=== PATIENT | male | born 1985 | race Caucasian/White ===

== ENCOUNTER 2017-01-19 19:15 | Emergency (ER) | payer SELFPAY ==
[2017-01-19 19:45] LABS: CHLORIDE,CL 103 mEq/L (98-106); SODIUM,NA 138 mEq/L (136-145)
--- NOTE | 2017-01-19 20:21 | EDM.PDOC ---
ED HPI GENERAL MEDICAL PROBLEM - General Chief Complaint: General Stated Complaint: palpitations Time Seen by Provider: 01/19/17 19:45 Source of Information: Reports: Patient History Limitations: Reports: No Limitations - History of Present Illness INITIAL COMMENTS - FREE TEXT/NARRATIVE: Gilbert is a 31 yo male who presents to the ER with complaints of palpitations that started around 1830 this evening. States he was sitting in his chair and started to feel anxious and as if his heart was racing. He admits he hasn't felt symptoms like this in the past. Doesn't feel as if he has any significant anxiety. States he did drink a lot of Mt. Dew and had any Monster energy drink around 1700hrs. He denies any other stimulants. States he has otherwise been feeling well. He quit smoking over a year ago and does state he does use a vapor on occasion. Denies any chest pain or SOB. Alex as if his heart was going to jump out of his chest. Upon arrival to ER he admits it gradually subsided. States he does feel a little anxious still but doesn't feel any palpitations. - Related Data Allergies Allergy/AdvReac Type Severity Reaction Status Date / Time No Known Allergies Allergy Verified 01/19/17 19:28 Home Meds: Home Meds . [No Known Home Meds] 01/19/17 [History] Past Medical History - Past Health History Medical/Surgical History: Denies Medical/Surgical History Social & Family History - Family History Family Medical History: Noncontributory - Tobacco Use Smoking Status *Q: Former Smoker Used Tobacco, but Quit: Yes Month Tobacco Last Used: 2 YEARS AGO - Caffeine Use Caffeine Use: Reports: Energy Drinks, Soda - Recreational Drug Use Recreational Drug Use: No ED ROS GENERAL - Review of Systems Review Of Systems: See Below Constitutional: Denies: Fever, Chills, Decreased Appetite HEENT: Reports: Vision Change. Denies: Eye Discharge, Eye Pain Respiratory: Denies: Shortness of Breath, Wheezing, Cough Cardiovascular: Reports: Lightheadedness, Palpitations. Denies: Chest Pain, Blood Pressure Problem, Edema GI/Abdominal: Reports: No Symptoms : Reports: No Symptoms Musculoskeletal: Reports: No Symptoms Neurological: Reports: No Symptoms Psychiatric: Reports: No Symptoms ED EXAM, GENERAL - Physical Exam Exam: See Below Exam Limited By: No Limitations General Appearance: Alert, No Apparent Distress, Other (sitting comfortably in examination room) Eye Exam: Bilateral Eye: EOMI, Normal Fundi, Normal Inspection, PERRL Ears: Normal External Exam, Normal Canal, Hearing Grossly Normal, Normal TMs Nose: Normal Inspection, No Blood Throat/Mouth: Normal Inspection, Normal Lips, Normal Teeth, Normal Gums, Normal Oropharynx, Normal Voice, No Airway Compromise Head: Atraumatic, Normocephalic Neck: Normal Inspection, Supple Respiratory/Chest: No Respiratory Distress, Lungs Clear, Normal Breath Sounds, No Accessory Muscle Use Cardiovascular: Normal Peripheral Pulses, Regular Rate, Rhythm, No Edema, No Murmur GI/Abdominal: Normal Bowel Sounds, Soft, Non-Tender, No Organomegaly Extremities: Normal Inspection, Normal Range of Motion, Normal Capillary Refill Neurological: Alert, Oriented, Normal Cognition, No Motor/Sensory Deficits Psychiatric: Normal Affect, Normal Mood Skin Exam: Warm, Dry, Intact, Normal Color, No Rash EKG INTERPRETATION EKG Date: 01/19/17 Rhythm: NSR Rate (Beats/Min): 81 Course - Vital Signs Last Recorded V/S: Last Vital Signs Temp 98.1 F 01/19/17 19:28 Pulse 88 01/19/17 20:01 Resp 18 01/19/17 19:28 BP 147/83 H 01/19/17 20:01 Pulse Ox 98 01/19/17 19:28 - Orders/Labs/Meds Orders: Active Orders 24 hr Category Date Time Status Chest 2V [CR] Stat Exams 01/19/17 19:16 Taken Labs: Laboratory Tests 01/19/17 01/19/17 01/19/17 Range/Units 19:16 19:16 19:16 WBC 8.1 (5.0-10.0) 10^3/uL RBC 4.95 (4.50-6.00) 10^6/uL Hgb 15.4 (14.0-18.0) g/dL Hct 42.7 (40.0-54.0) % MCV 86.3 (82.0-94.0) fL MCH 31.1 (27.0-32.0) pg MCHC 36.1 (33.0-38.0) g/dL RDW Coeff of [place] 13.0 (11.0-15.0) % Plt Count 345 (150-400) 10^3/uL Neut % (Auto) 45.7 (35-85) % Lymph % (Auto) 43.9 (10-55) % [place] % (Auto) 8.2 (0-16) % Eos % (Auto) 2.0 (0-5) % Baso % (Auto) 0.2 (0-3) % Neut # (Auto) 3.68 (1.80-7.00) 10^3/uL Lymph # (Auto) 3.54 (1.00-4.80) 10^3/uL [place] # (Auto) 0.66 (0.00-0.80) 10^3/uL Eos # (Auto) 0.16 (0.00-0.45) 10^3/uL Baso # (Auto) 0.02 10^3/uL PT 10.4 (9.7-12.3) SEC INR 0.96 (0.92-1.18) APTT 27.8 (24.5-30.9) SEC Sodium 138 (136-145) mEq/L Potassium 3.3 L (3.5-5.0) mEq/L Chloride 103 (98-106) mEq/L Carbon Dioxide 26 (21-32) mmol/L BUN 9 (7-18) mg/dL Creatinine 1.1 (0.7-1.3) mg/dL Est Cr Clr Drug Dosing 98.19 mL/min Estimated GFR (MDRD) > 60 (>=60) mL/min Glucose 100 H (75-99) mg/dL Calcium 8.7 (8.4-10.1) mg/dL Lactate Dehydrogenase 146 (100-190) U/L Creatine Kinase 108 (35-232) U/L Troponin I < 0.017 (0.00-0.06) ng/mL Departure - Departure Time of Disposition: 20:23 Disposition: Home, Self-Care 01 Clinical Impression: Heart palpitations, Anxiety - Discharge Information Instructions: Panic Attacks, [id number], Heartbeats (How the Heart Works), Palpitations, [id number] Referrals: Provider,Unknown [Primary Care Provider] - Forms: ED Department Discharge Additional Instructions: All tests came back stable. Again Potassium was a little low, encourage eating a banana daily Discussed caffeine/energy drinks into detail; highly encourage cutting back on this Relax tonight Recommend if symptoms return or any concerns at all to return to ER. May follow up in clinic as well to have further testing that you requested ( lipids, etc...) If any concerns may call at anytime to nurses station as well [phone] - Problem List & Annotations (1) Anxiety SNOMED Code(s): 47790900 Code(s): F41.9 - ANXIETY DISORDER, UNSPECIFIED Status: Acute Current Visit: Yes (2) Heart palpitations SNOMED Code(s): 46410244 Code(s): R00.2 - PALPITATIONS Status: Acute Current Visit: Yes - My Orders Last 24 Hours: My Active Orders 01/19/17 19:16 Chest 2V [CR] Stat - Assessment/Plan Last 24 Hours: My Active Orders 01/19/17 19:16 Chest 2V [CR] Stat Plan: See additional instructions
== END 2017-01-19 20:30 | disposition home or self-care (01) ==
LOC: CC.ED 19:15
DX: F41.9 Anxiety disorder, unspecified (principal); Z87.891 Personal history of nicotine dependence
CPT/HCPCS: 36415; 71020; 80048; 82550; 83615; 84484; 85025; 85610; 85730; 93005; 99285

== ENCOUNTER 2019-09-16 12:15 | Emergency (ER) | payer BC ==
--- NOTE | 2019-09-16 12:43 | EDM.PDOC ---
ED HPI GENERAL MEDICAL PROBLEM - General Chief Complaint: Chest Pain Stated Complaint: chest pain Time Seen by Provider: 09/16/19 12:20 Source of Information: Reports: Patient History Limitations: Reports: No Limitations - History of Present Illness INITIAL COMMENTS - FREE TEXT/NARRATIVE: Patient presents to ER with a 3 hour history of anterior left chest discomfort. Reports radiation down his left arm. No shortness of breath. No nausea/vomiting or abdominal pain. Denies diaphoresis. Did push mow the lawn yesterday but otherwise no exertional concerns or strains as of late. States had an episode in the past where he was seen for palpitations and felt to be related to energy drinks. Has not had any since that time. Reports family history of cardiac concerns. Grandfather of a heart attack. Father has hypertension. Patient admits to rare alcohol use. Has not used recreational drugs for 8 years, did only use marijuana. Minimal caffeine intake. Does vape. Onset: Today, Sudden (awoke with discomfort in chest) Duration: Hour(s): Location: Reports: Chest Quality: Reports: Ache Severity: Mild Improves with: Reports: None Worsens with: Reports: None Associated Symptoms: Reports: Chest Pain. Denies: Confusion, Cough, Fever/Chills, Loss of Appetite, Nausea/Vomiting, Shortness of Breath Left Upper Chest Pain Score (Numeric/FACES): 4 - Related Data Allergies Allergy/AdvReac Type Severity Reaction Status Date / Time No Known Allergies Allergy Verified 01/19/17 19:28 Home Meds: Home Meds . [No Known Home Meds] 01/19/17 [History] Past Medical History - Past Health History Medical/Surgical History: Denies Medical/Surgical History Social & Family History - Family History Family Medical History: Noncontributory - Tobacco Use Tobacco Use Within Last Twelve Months: Vaping - Caffeine Use Caffeine Use: Reports: Energy Drinks, Soda ED ROS GENERAL - Review of Systems Review Of Systems: See Below Constitutional: Denies: Fever, Chills, Malaise, Weakness, Decreased Appetite HEENT: Denies: Ear Pain, Rhinitis, Sinus Problem, Throat Pain Respiratory: Denies: Shortness of Breath, Cough Cardiovascular: Reports: Chest Pain. Denies: Edema, Lightheadedness Endocrine: Denies: Fatigue GI/Abdominal: Denies: Abdominal Pain, Constipation, Diarrhea, Nausea, Vomiting : Reports: No Symptoms Musculoskeletal: Reports: No Symptoms Skin: Reports: No Symptoms Neurological: Reports: No Symptoms ED EXAM, GENERAL - Physical Exam Exam: See Below Exam Limited By: No Limitations General Appearance: Alert, WD/WN, No Apparent Distress Ears: Normal External Exam, Normal TMs Nose: Normal Inspection, Normal Mucosa, No Blood Throat/Mouth: Normal Inspection, Normal Oropharynx Head: Normocephalic Neck: Normal Inspection, Supple, Non-Tender Respiratory/Chest: No Respiratory Distress, Lungs Clear, Normal Breath Sounds Cardiovascular: Regular Rate, Rhythm, No Edema GI/Abdominal: Normal Bowel Sounds, Soft, Non-Tender Extremities: Normal Inspection, No Pedal Edema Neurological: Alert, Oriented Skin Exam: Warm, Dry Course - Vital Signs Last Recorded V/S: Last Vital Signs Temp 98.1 F 09/16/19 12:17 Pulse 78 09/16/19 12:17 Resp 20 09/16/19 12:17 BP 132/84 09/16/19 12:17 Pulse Ox - Orders/Labs/Meds Orders: Active Orders 24 hr Category Date Time Status Chest 2V [CR] Stat Exams 09/16/19 12:18 Ordered Labs: Laboratory Tests 09/16/19 09/16/19 Range/Units 12:25 12:25 WBC 6.2 (5.0-10.0) 10^3/uL RBC 5.00 (4.50-6.00) 10^6/uL Hgb 15.6 (14.0-18.0) g/dL Hct 43.3 (40.0-54.0) % MCV 86.6 (82.0-94.0) fL MCH 31.2 (27.0-32.0) pg MCHC 36.0 (33.0-38.0) g/dL RDW Coeff of [place] 13.2 (11.0-15.0) % Plt Count 315 (150-400) 10^3/uL Neut % (Auto) 48.1 (35-85) % Lymph % (Auto) 42.9 (10-55) % [place] % (Auto) 6.9 (0-16) % Eos % (Auto) 1.6 (0-5) % Baso % (Auto) 0.5 (0-3) % Neut # (Auto) 2.98 (1.80-7.00) 10^3/uL Lymph # (Auto) 2.66 (1.00-4.80) 10^3/uL [place] # (Auto) 0.43 (0.00-0.80) 10^3/uL Eos # (Auto) 0.10 (0.00-0.45) 10^3/uL Baso # (Auto) 0.03 10^3/uL Sodium 145 (136-145) mEq/L Potassium 4.0 D (3.5-5.0) mEq/L Chloride 107 H (98-106) mEq/L Carbon Dioxide 26 (21-32) mmol/L BUN 8 (7-18) mg/dL Creatinine 1.2 (0.7-1.3) mg/dL Est Cr Clr Drug Dosing TNP Estimated GFR (MDRD) > 60 (>=60) mL/min Glucose 110 H (75-99) mg/dL Calcium 8.9 (8.4-10.1) mg/dL Total Bilirubin 0.4 (0.0-1.0) mg/dL AST 14 L (15-37) U/L ALT 44 (12-78) U/L Alkaline Phosphatase 110 (46-116) U/L Lactate Dehydrogenase 128 (100-190) U/L Creatine Kinase 82 (35-232) U/L Troponin I < 0.017 (0.00-0.06) ng/mL C-Reactive Protein < 0.2 L (0.2-0.8) mg/dL Total Protein 7.3 (6.4-8.2) g/dL Albumin 3.6 (3.4-5.0) g/dL - Re-Assessments/Exams Free Text/Narrative Re-Assessment/Exam: 09/16/19 13:04 EKG, chest xray and lab are all negative for any concerns. Discussed with patient. Is pain free. Advised to return if pain returns as may consider repeating a troponin. Patient verbalizes understanding. Departure - Departure Time of Disposition: 13:05 Disposition: Home, Self-Care 01 Condition: Good Clinical Impression: Atypical chest pain Instructions: Nonspecific Chest Pain, Adult Forms: ED Department Discharge Additional Instructions: 1. Rest 2. Push fluids 3. Consider cessation of vaping 4. Return if increased pain or shortness of breath 5. Call with any questions or concerns. Sepsis Event Note (ED) - Evaluation Sepsis Screening Result: No Definite Risk - Focused Exam Vital Signs: Vital Signs Temp Pulse Resp BP 09/16/19 12:17 98.1 F 78 20 132/84 - My Orders Last 24 Hours: My Active Orders 09/16/19 12:18 Chest 2V [CR] Stat - Assessment/Plan Last 24 Hours: My Active Orders 09/16/19 12:18 Chest 2V [CR] Stat
[2019-09-16 12:49] LABS: CHLORIDE,CL 107 mEq/L (98-106); SODIUM,NA 145 mEq/L (136-145)
== END 2019-09-16 13:10 | disposition home or self-care (01) ==
LOC: CC.ED 12:15
DX: R07.89 Other chest pain (principal); F17.290 Nicotine dependence, other tobacco product, uncomplicated
CPT/HCPCS: 36415; 71046; 80053; 82550; 83615; 84484; 85025; 86140; 93005; 99285-25

== ENCOUNTER 2024-08-10 14:39 | Emergency (ER) | payer BC, OTHER ==
[2024-08-10] MEDS: Lidocaine 1% with EPINEPHrine 1:100,000 10 ML MDV INJECT ONE (15:14)
[2024-08-10] MEDS: Bacitracin Oint 1 GM U/D Packet TOP ONE (15:14)
[2024-08-10] MEDS: Diphtheria,Pertussis(Acell),Tetanus Vaccine 0.5 ML Syringe IM ONE (15:15)
== END 2024-08-10 15:43 | disposition home or self-care (01) ==
LOC: CC.ED 14:39
DX: S61.211A Laceration without foreign body of left index finger without damage to nail, initial encounter (principal); Z23 Encounter for immunization; W26.8XXA Contact with other sharp object(s), not elsewhere classified, initial encounter
CPT/HCPCS: 12001; 73130-LT; 90471; 90715; 99283-25

== ENCOUNTER 2024-09-17 00:45 | Emergency (ER) | payer OTHER ==
[2024-09-17] MEDS: Tetracaine HCl/PF 0.5% 4 ML Bottle EYERT ONE (01:02)
[2024-09-17] MEDS: Dexamethasone/Tobramycin 0.1-0.3% Ophth Susp 2.5 ML Bottle EYERT SCH (01:08)
== END 2024-09-17 01:15 | disposition home or self-care (01) ==
LOC: CC.ED 00:45
DX: S05.01XA Injury of conjunctiva and corneal abrasion without foreign body, right eye, initial encounter (principal); F17.200 Nicotine dependence, unspecified, uncomplicated; X58.XXXA Exposure to other specified factors, initial encounter
CPT/HCPCS: 99283